=== PATIENT | female | born 1945 | race Caucasian/White ===

== ENCOUNTER → 2016-08-23 | Outpatient (CLI) | payer MEDICARE, OTHER ==
--- NOTE | ~2016-08-23 | BD1 ---
[facility] A Service of [facility] & [facility] RADIOLOGY TEXT RESULTS PATIENT: MARISEL SILVER LOCATION: [facility] : 43 UNIT #: [id number] AGE: [address]: Liset Brown MD SEX: F ORDER DR: [id number] [facility] [address] [place], [place] [address] [id number] O MR#: [id number] Acc #: [id number] NAME: MARISEL SILVER : 1945 SEX: F STUDY DATE/TIME: 08/23/2016 9:04 UNIT: [facility] ROOM: STUDY DESCRIPTION: BD Dexa Bone Dens 1+ Site Attending Physician: Liset Brown M.D. Referring Physician: Liset Brown M.D. Ordering Physician: Liset Brown M.D. Primary Care Physician: Liset Brown M.D. MEDICAL IMAGING REPORT This report is preliminary unless electronic signature is present EXAM DXA scan, 08/23/2016 HISTORY Status post menopause with no hormone replacement therapy. Osteopenia. Arthritis. Smoking history for over 20 years. Hypertension with blood pressure medication. FINDINGS Bone mineral density in the lumbar spine from L1-L4 is 0.903 g/cm2 which is 1.3 standard deviations below the mean when compared to the young adult reference population which is characteristic of osteopenia. This is 0.9 standard deviations above the mean when compared to the age-matched population. Bone mineral density in the left femoral neck was 0.655 g/cm2 which is 1.7 standard deviations below the mean when compared to the young adult reference population which is characteristic of osteopenia. This is 0.1 standard deviations above the mean when compared to the age-matched population. IMPRESSION Bone mineral density in the lumbar spine and left hip characteristic of osteopenia. Dictated by... Adebayo Whitman M.D. THIS IS AN ELECTRONICALLY VERIFIED REPORT Adebayo Whitman M.D. at 08/23/2016 5:06 PM MANA/jonatan TD: 08/23/2016 11:40 [facility] A Service of [facility] & [facility] RADIOLOGY TEXT RESULTS PATIENT: MARISEL [facility]ILVER [id number] : [birth year] UNIT #: [id number] AGE: [address]: Liset Brown MD SEX: F ORDER DR: JANUARY #: [id number] MEDICAL IMAGING REPORT Page 1 of 1 COPY
== END | disposition home or self-care (01) ==
LOC: CWCC 08:48
DX: M81.0 Age-related osteoporosis without current pathological fracture (principal); M85.89 Other specified disorders of bone density and structure, multiple sites
CPT/HCPCS: 77080